=== PATIENT | male | born 1980 | race Caucasian/White ===

== ENCOUNTER 2019-03-01 06:05 | Day surgery (SDC) | payer BC, OTHER ==
[2019-03-01] MEDS ORDERED: Ondansetron 4 MG/2 ML SDV IVPUSH ONE (06:20)
[2019-03-01] MEDS ORDERED: Sodium Chloride 0.9% 1,000 ML IV ONE ×2 (06:20→07:02)
[2019-03-01] MEDS ORDERED: Sodium Chloride 0.9% 10 ML Syringe FLUSH PRN (06:20)
[2019-03-01] MEDS ORDERED: Morphine 2 MG/ML Syringe IVPUSH ONE (06:20)
[2019-03-01] MEDS ORDERED: Pantoprazole 40 MG Vial IVPUSH ONE (06:20)
[2019-03-01] MEDS ORDERED: Sodium Chloride 0.9% 2.5 ML Syringe FLUSH PRN (06:20)
--- NOTE | 2019-03-01 06:25 | EDM.PDOC ---
<Jayleen Holland - Last Filed: 03/01/19 06:30> ED HPI GENERAL MEDICAL PROBLEM - General Chief Complaint: Abdominal Pain Stated Complaint: ABDOMINAL PAIN, VOMITING Time Seen by Provider: 03/01/19 06:13 - History of Present Illness INITIAL COMMENTS - FREE TEXT/NARRATIVE: HISTORY AND PHYSICAL: History of present illness: The patient is a 38-year-old male with no GI or history and no abdominal surgical history who presents with 5-6 hours of epigastric and upper abdominal pain associated with vomiting. The patient said he had a normal day yesterday without any systemic issues and no new foods were consumed and he went to sleep and awoke from sleep with epigastric and upper abdominal bilateral pain which did not radiate to his lower abdomen or his flanks and then proceeded to have nausea and intractable vomiting. His vomit was not black or bloody nor was it ileus. The patient had a normal bowel movement yesterday which was not black bloody or diarrhea. He's had no flank pain no urinary symptoms no cough no chest pain and no shortness of breath. He said that with the vomiting and the pain he has felt feverish but he did not have a documented fever. He does not drink an excessive amount of caffeine and does not drink alcohol and denies other social history. The patient denies food intolerance in the past especially fatty foods or spicy foods. He has not had any exotic travel or new foods in his diet in the last 24 hours. He describes the pain as a deep crampy and achy pain and it does not radiate to his back. It does not localize to the right or left but is just in the upper abdomen and he does feel some slight discomfort in the lower abdomen but he feels that it's originating in the upper abdomen. He does not take any [id number] medications to try to help with this pain. The patient says that in the past he has not had issues with heartburn nor does he take any significant amount of nonsteroidals or heartburn medication. Review of systems: As per history of present illness and below otherwise all systems reviewed and negative. Past medical history: As per history of present illness and as reviewed below otherwise noncontributory. Surgical history: As per history of present illness and as reviewed below otherwise noncontributory. Social history: No reported history of drug or alcohol abuse. Family history: As per history of present illness and as reviewed below otherwise noncontributory. Physical exam: General: Well-developed well-nourished overweight man who is nontoxic and vital signs are noted by me. He ambulated into the ED without assistance HEENT: Atraumatic, normocephalic, negative for conjunctival pallor or scleral icterus, mucous membranes moist, throat clear, neck supple, nontender, trachea midline. Lungs: Clear to auscultation, breath sounds equal bilaterally, chest nontender. Heart: S1S2, regular rate and rhythm no overt murmurs Abdomen: Soft, nondistended, no tympany on percussion and bowel sounds are mildly hypoactive. On palpation there is some diffuse upper abdominal tenderness more in the epigastrium and not as much in the left upper and right upper quadrants. There is specific tenderness in the right lower quadrant with some involuntary guarding but no rebound which surprised the patient on my exam. Negative for masses or hepatosplenomegaly. Negative for costovertebral tenderness. Pelvis: Stable nontender. Genitourinary: Deferred. Rectal: Deferred. Extremities: Atraumatic, negative for cords or calf pain. Neurovascular unremarkable. Neuro: Awake, alert, oriented. Cranial nerves II through XII unremarkable. Cerebellum unremarkable. Motor and sensory unremarkable throughout. Exam nonfocal. Diagnostics: CBC CMP amylase lipase UA with reflex lactic acid CT scan of the abdomen and pelvis EKG Therapeutics: IV fluids Zofran and Protonix morphine 0650: Case is endorsed to Dr. Cunha to follow-up lab tests and CAT scan and disposition patient pending these results. Impression: Upper abdominal/epigastric pain with vomiting Definitive disposition and diagnosis as appropriate pending reevaluation and review of above. epigastric Pain Score (Numeric/FACES): 10 - Related Data Allergies Allergy/AdvReac Type Severity Reaction Status Date / Time No Known Allergies Allergy Verified 03/01/19 06:08 Home Meds: Home Meds . [No Known Home Meds] 09/07/13 [History] Past Medical History - Past Health History Medical/Surgical History: Denies Medical/Surgical History Social & Family History - Tobacco Use Smoking Status *Q: Never Smoker - Recreational Drug Use Recreational Drug Use: No ED ROS GENERAL - Review of Systems Review Of Systems: ROS reveals no pertinent complaints other than HPI. ED EXAM, GENERAL - Physical Exam Exam: See Below (See dictation) Course - Vital Signs Last Recorded V/S: Last Vital Signs Temp 97.3 F 03/01/19 08:23 Pulse 76 03/01/19 08:56 Resp 15 03/01/19 08:56 BP 131/61 03/01/19 08:56 Pulse Ox 98 03/01/19 08:56 - Orders/Labs/Meds Orders: Active Orders 24 hr Category Date Time Status EKG Documentation Completion [RC] STAT Care 03/01/19 06:19 Active Piperacillin/Tazobactam [Piperacil-Tazobact] 3.375 gm Med 03/01/19 08:40 Active Sodium Chloride 0.9% [Normal Saline] 50 ml IV ONETIME Sodium Chloride 0.9% [Saline Flush] Med 03/01/19 06:20 Active 10 ml FLUSH ASDIRECTED PRN Sodium Chloride 0.9% [Saline Flush] Med 03/01/19 06:20 Active 2.5 ml FLUSH ASDIRECTED PRN Saline Lock Insert [OM.PC] Stat Oth 03/01/19 06:19 Ordered Medication Orders Piperacillin Sod/Tazobactam (Sod 3.375 gm/ Sodium Chloride) 50 mls @ 100 mls/ hr IV ONETIME ONE Stop: 03/01/19 09:09 Last Admin: 03/01/19 08:53 Dose: 100 mls/hr Sodium Chloride (Saline Flush) 10 ml FLUSH ASDIRECTED PRN PRN Reason: Keep Vein Open Sodium Chloride (Saline Flush) 2.5 ml FLUSH ASDIRECTED PRN PRN Reason: Keep Vein Open Labs: Laboratory Tests 03/01/19 03/01/19 03/01/19 Range/Units 06:30 06:30 06:30 WBC 11.66 H (4.0-11.0) K/uL RBC 5.19 (4.50-5.90) M/uL Hgb 15.0 (13.0-17.0) g/dL Hct 44.4 (38.0-50.0) % MCV 85.5 (80.0-98.0) fL MCH 28.9 (27.0-32.0) pg MCHC 33.8 (31.0-37.0) g/dL RDW Std Deviation 40.3 (28.0-62.0) fl RDW Coeff of Leon 13 (11.0-15.0) % Plt Count 236 (150-400) K/uL MPV 9.70 (7.40-12.00) fL Neut % (Auto) 82.1 H (48.0-80.0) % Lymph % (Auto) 11.2 L (16.0-40.0) % [place] % (Auto) 5.6 (0.0-15.0) % Eos % (Auto) 0.8 (0.0-7.0) % Baso % (Auto) 0.3 (0.0-1.5) % Neut # (Auto) 9.6 H (1.4-5.7) K/uL Lymph # (Auto) 1.3 (0.6-2.4) K/uL [place] # (Auto) 0.7 (0.0-0.8) K/uL Eos # (Auto) 0.1 (0.0-0.7) K/uL Baso # (Auto) 0.0 (0.0-0.1) K/uL Nucleated RBC % 0.0 /100WBC Nucleated RBCs # 0 K/uL Lactate 1.1 (0.20-2.00) mmol/L Sodium 140 (136-148) mmol/L Potassium 4.6 (3.5-5.1) mmol/L Chloride 105 (98-107) mmol/L Carbon Dioxide 24.9 (21.0-32.0) mmol/L BUN 24 H (7.0-18.0) mg/dL Creatinine 1.4 H (0.8-1.3) mg/dL Est Cr Clr Drug Dosing 85.51 mL/min Estimated GFR (MDRD) 56.7 ml/min Glucose 112 H (74-106) mg/dL Calcium 8.7 (8.5-10.1) mg/dL Total Bilirubin 0.5 (0.2-1.0) mg/dL AST 28 (15-37) IU/L ALT 52 (14-63) IU/L Alkaline Phosphatase 66 (46-116) U/L Total Protein 7.3 (6.4-8.2) g/dL Albumin 4.1 (3.4-5.0) g/dL Globulin 3.2 (2.6-4.0) g/dL Albumin/Globulin Ratio 1.3 (0.9-1.6) Amylase 48 (25-115) U/L Lipase 75 (73-393) U/L Urine Color Urine Appearance Urine pH (5.0-8.0) Ur Specific [place] (1.001-1.035) Urine Protein (NEGATIVE) mg/dL Urine Glucose (UA) (NEGATIVE) mg/dL Urine Ketones (NEGATIVE) mg/dL Urine Occult Blood (NEGATIVE) Urine Nitrite (NEGATIVE) Urine Bilirubin (NEGATIVE) Urine Urobilinogen (<2.0) EU/dL Ur Leukocyte Esterase (NEGATIVE) 03/01/19 Range/Units 06:50 WBC (4.0-11.0) K/uL RBC (4.50-5.90) M/uL Hgb (13.0-17.0) g/dL Hct (38.0-50.0) % MCV (80.0-98.0) fL MCH (27.0-32.0) pg MCHC (31.0-37.0) g/dL RDW Std Deviation (28.0-62.0) fl RDW Coeff of Leon (11.0-15.0) % Plt Count (150-400) K/uL MPV (7.40-12.00) fL Neut % (Auto) (48.0-80.0) % Lymph % (Auto) (16.0-40.0) % [place] % (Auto) (0.0-15.0) % Eos % (Auto) (0.0-7.0) % Baso % (Auto) (0.0-1.5) % Neut # (Auto) (1.4-5.7) K/uL Lymph # (Auto) (0.6-2.4) K/uL [place] # (Auto) (0.0-0.8) K/uL Eos # (Auto) (0.0-0.7) K/uL Baso # (Auto) (0.0-0.1) K/uL Nucleated RBC % /100WBC Nucleated RBCs # K/uL Lactate (0.20-2.00) mmol/L Sodium (136-148) mmol/L Potassium (3.5-5.1) mmol/L Chloride (98-107) mmol/L Carbon Dioxide (21.0-32.0) mmol/L BUN (7.0-18.0) mg/dL Creatinine (0.8-1.3) mg/dL Est Cr Clr Drug Dosing mL/min Estimated GFR (MDRD) ml/min Glucose (74-106) mg/dL Calcium (8.5-10.1) mg/dL Total Bilirubin (0.2-1.0) mg/dL AST (15-37) IU/L ALT (14-63) IU/L Alkaline Phosphatase (46-116) U/L Total Protein (6.4-8.2) g/dL Albumin (3.4-5.0) g/dL Globulin (2.6-4.0) g/dL Albumin/Globulin Ratio (0.9-1.6) Amylase (25-115) U/L Lipase (73-393) U/L Urine Color YELLOW Urine Appearance CLEAR Urine pH 6.0 (5.0-8.0) Ur Specific [place] 1.020 (1.001-1.035) Urine Protein NEGATIVE (NEGATIVE) mg/dL Urine Glucose (UA) NEGATIVE (NEGATIVE) mg/dL Urine Ketones NEGATIVE (NEGATIVE) mg/dL Urine Occult Blood NEGATIVE (NEGATIVE) Urine Nitrite NEGATIVE (NEGATIVE) Urine Bilirubin NEGATIVE (NEGATIVE) Urine Urobilinogen 0.2 (<2.0) EU/dL Ur Leukocyte Esterase NEGATIVE (NEGATIVE) Meds: Medications Generic Name Dose Route Start Last Admin Trade Name Freq PRN Reason Stop Dose Admin Piperacillin Sod/Tazobactam 50 mls @ 100 mls/hr 03/01/19 08:40 03/01/19 08:53 Sod 3.375 gm/ Sodium Chloride IV 03/01/19 09:09 100 mls/hr ONETIME ONE Administration Sodium Chloride 10 ml 03/01/19 06:20 Saline Flush FLUSH ASDIRECTED PRN Keep Vein Open Sodium Chloride 2.5 ml 03/01/19 06:20 Saline Flush FLUSH ASDIRECTED PRN Keep Vein Open Discontinued Medications Generic Name Dose Route Start Last Admin Trade Name Freq PRN Reason Stop Dose Admin Hydromorphone HCl 0.5 mg 03/01/19 07:55 03/01/19 08:02 Dilaudid IVPUSH 03/01/19 07:56 0.5 mg ONETIME ONE Administration Sodium Chloride 1,000 mls @ 999 mls/hr 03/01/19 06:20 03/01/19 06:22 Normal Saline IV 03/01/19 07:20 999 mls/hr STAT ONE Administration Sodium Chloride Confirm 03/01/19 06:28 03/01/19 06:39 Normal Saline Administered 03/01/19 06:29 20 mls/hr Dose Administration 20 mls @ as directed .ROUTE .STK-MED ONE Sodium Chloride 1,000 mls @ 999 mls/hr 03/01/19 07:02 03/01/19 07:46 Normal Saline IV 03/01/19 08:02 999 mls/hr .Bolus ONE Administration Iopamidol 90 ml 03/01/19 07:20 03/01/19 07:21 Isovue-370 (76%) IVPUSH 03/01/19 07:21 90 ml ONETIME STA Administration Morphine Sulfate 4 mg 03/01/19 06:20 03/01/19 06:40 Morphine IVPUSH 03/01/19 06:21 4 mg ONETIME ONE Administration Ondansetron HCl 4 mg 03/01/19 06:20 03/01/19 06:36 Zofran IVPUSH 03/01/19 06:21 4 mg ONETIME ONE Administration Pantoprazole Sodium 80 mg 03/01/19 06:20 03/01/19 06:44 Protonix Iv IVPUSH 03/01/19 06:21 80 mg .BOLUS ONE Administration Departure - Departure Disposition: Still A Patient 30 Condition: Good Clinical Impression: Abdominal pain with vomiting Appendicitis Qualifiers: Appendicitis type: acute appendicitis Acute appendicitis type: other Qualified Code(s): K35.890 - Other acute appendicitis without perforation or gangrene; K35.89 - Other acute appendicitis - Discharge Information - My Orders Last 24 Hours: My Active Orders 03/01/19 08:40 Piperacillin/Tazobactam [Piperacil-Tazobact] 3.375 gm Sodium Chloride 0.9% [ Normal Saline] 50 ml IV ONETIME - Assessment/Plan Last 24 Hours: My Active Orders 03/01/19 08:40 Piperacillin/Tazobactam [Piperacil-Tazobact] 3.375 gm Sodium Chloride 0.9% [ Normal Saline] 50 ml IV ONETIME <Sasha Cunha - Last Filed: 03/01/19 09:03> ED HPI GENERAL MEDICAL PROBLEM - History of Present Illness INITIAL COMMENTS - FREE TEXT/NARRATIVE: patient was signed out to me byn Dr. Holland to follow up on work up in progress. Pt has acute uncomplicated appendicitis on CT with a WBC of 11. Zosyn given and Dr. Aguilar consulted. Pt will go directly to the OR. Departure - Departure Time of Disposition: 09:02
[2019-03-01] MEDS ORDERED: Sodium Chloride 0.9% 20 ML ONE (06:28)
[2019-03-01 06:57] LABS: CARBON DIOXIDE,CO2 24.9 mmol/L (21.0-32.0); POTASSIUM,K 4.6 mmol/L (3.5-5.1)
[2019-03-01] MEDS ORDERED: Iopamidol 755 Mg/ML 100 ML Bottle IVPUSH STA (07:20)
[2019-03-01] MEDS ORDERED: HYDROmorphone 2 MG/ML Syringe IVPUSH ONE (07:55)
--- NOTE | 2019-03-01 08:23 | CT ---
INDICATION: Epigastric and right lower quadrant abdominal pain for 5 hours with vomiting. COMPARISON: None. TECHNIQUE: CT of the abdomen pelvis with IV contrast. 90 cc of Isovue-370 was administered. FINDINGS: Mild basilar atelectasis. Liver, gallbladder, spleen, pancreas, adrenal glands and kidneys are unremarkable. The abdominal aorta is normal in caliber. No lymphadenopathy in the abdomen or pelvis. Urinary bladder is nondistended. Prostate is unremarkable. No free fluid or free air. Mild diverticulosis without evidence of acute diverticulitis. The appendix is dilated measuring up to 14 mm, with an appendicolith (series 203 image 54) and mild adjacent stranding consistent with acute appendicitis. No abscess no evidence of abscess or perforation. Bones are unremarkable for age. IMPRESSION: Acute uncomplicated appendicitis. Please note that all CT scans at this facility use dose modulation, iterative reconstruction, and/or weight-based dosing when appropriate to reduce radiation dose to as low as reasonably achievable. Dictated by Trevor Fontenot MD @ Mar 01 2019 8:15AM Signed by Dr. Trevor Fontenot @ Mar 01 2019 8:20AM
[2019-03-01] MEDS ORDERED: Piperacillin/Tazobactam 3.375 GM in Sodium Chloride 0.9% 50 ML IV ONE (08:40)
--- NOTE | 2019-03-01 09:18 | PCM.CONS ---
<Linda,Parkerlou - Last Filed: 03/01/19 09:13> H&P History of Present Illness - General Date of Service: 03/01/19 Admit Problem/Dx: Acute appendicitis Source of Information: Patient History Limitations: Reports: No Limitations - History of Present Illness Initial Comments - Free Text/Narative: Mr. Boogie is a 38 yr old male that presented to the ED this am with right lower quadrant abdominal pain and nausea. He states that the pain started out of the blue in the middle of the night. He had nausea and vomited one time. He states that the pain progressively got worse and he was unable to sleep or sit still. He came into the ED this am and said the car ride was miserable. He has never had anything like this before. He endorses associated fevers. Denies chills and diarrhea. Onset of Symptoms: Reports: Today, Sudden Symptom Onset Date: 03/01/19 Symptom Onset Time: 00:00 Duration of Symptoms: Reports: Hour(s):, Getting Worse Location: Reports: Abdomen Severity: Moderate Improves with: Reports: None Worsens with: Reports: Movement Associated Symptoms: Reports: Fever/Chills, Nausea/Vomiting epigastric Pain Score (Numeric/FACES): 10 - Related Data Allergies/Adverse Reactions: Allergies Allergy/AdvReac Type Severity Reaction Status Date / Time No Known Allergies Allergy Verified 03/01/19 06:08 Home Medications: Home Meds . [No Known Home Meds] 09/07/13 [History] Past Medical History - Past Health History Medical/Surgical History: Denies Medical/Surgical History Respiratory History: Reports: None - Past Surgical History Head Surgeries/Procedures: Reports: None HEENT Surgical History: Reports: None Cardiovascular Surgical History: Reports: None Respiratory Surgical History: Reports: None GI Surgical History: Reports: None Female Surgical History: Reports: None Male Surgical History: Reports: None Endocrine Surgical History: Reports: None Neurological Surgical History: Reports: None Musculoskeletal Surgical History: Reports: None Oncologic Surgical History: Reports: None Dermatological Surgical History: Reports: None Social & Family History - Family History Family Medical History: Noncontributory - Tobacco Use Smoking Status *Q: Never Smoker - Alcohol Use Alcohol Use History: Yes Alcohol Use Frequency: Socially - Recreational Drug Use Recreational Drug Use: No H&P Review of Systems - Review of Systems: Review Of Systems: See Below General: Reports: Fever, Decreased Appetite HEENT: Reports: No Symptoms Pulmonary: Reports: No Symptoms Cardiovascular: Reports: No Symptoms Gastrointestinal: Reports: Abdominal Pain, Nausea, Vomiting Genitourinary: Reports: No Symptoms Musculoskeletal: Reports: No Symptoms Skin: Reports: No Symptoms Neurological: Reports: No Symptoms Hematologic/Lymphatic: Reports: No Symptoms Immunologic: Reports: No Symptoms Exam - Exam Exam: See Below - Vital Signs Vital Signs: Last Vital Signs Temp 97.3 F 03/01/19 08:23 Pulse 76 03/01/19 08:56 Resp 15 03/01/19 08:56 BP 131/61 03/01/19 08:56 Pulse Ox 98 03/01/19 08:56 Weight: 285 lb 4.45 oz - Exam General: Alert, Oriented, Mild Distress (moving around in bed trying to get comfortable) HEENT: Conjunctiva Clear, EOMI, Hearing Intact Lungs: Clear to Auscultation, Normal Respiratory Effort Cardiovascular: Regular Rate, Regular Rhythm GI/Abdominal Exam: Soft, No Distention, Rebound, Tender (to Right lower quadrant , positive Rosvigs sign) Extremities: No Pedal Edema Skin: Warm, Dry, Intact - Patient Data Lab Results Last 24 hrs: Laboratory Results - last 24 hr 03/01/19 03/01/19 03/01/19 Range/Units 06:30 06:30 06:30 WBC 11.66 H (4.0-11.0) K/uL RBC 5.19 (4.50-5.90) M/uL Hgb 15.0 (13.0-17.0) g/dL Hct 44.4 (38.0-50.0) % MCV 85.5 (80.0-98.0) fL MCH 28.9 (27.0-32.0) pg MCHC 33.8 (31.0-37.0) g/dL RDW Std Deviation 40.3 (28.0-62.0) fl RDW Coeff of Leon 13 (11.0-15.0) % Plt Count 236 (150-400) K/uL MPV 9.70 (7.40-12.00) fL Neut % (Auto) 82.1 H (48.0-80.0) % Lymph % (Auto) 11.2 L (16.0-40.0) % [place] % (Auto) 5.6 (0.0-15.0) % Eos % (Auto) 0.8 (0.0-7.0) % Baso % (Auto) 0.3 (0.0-1.5) % Neut # (Auto) 9.6 H (1.4-5.7) K/uL Lymph # (Auto) 1.3 (0.6-2.4) K/uL [place] # (Auto) 0.7 (0.0-0.8) K/uL Eos # (Auto) 0.1 (0.0-0.7) K/uL Baso # (Auto) 0.0 (0.0-0.1) K/uL Nucleated RBC % 0.0 /100WBC Nucleated RBCs # 0 K/uL Lactate 1.1 (0.20-2.00) mmol/L Sodium 140 (136-148) mmol/L Potassium 4.6 (3.5-5.1) mmol/L Chloride 105 (98-107) mmol/L Carbon Dioxide 24.9 (21.0-32.0) mmol/L BUN 24 H (7.0-18.0) mg/dL Creatinine 1.4 H (0.8-1.3) mg/dL Est Cr Clr Drug Dosing 85.51 mL/min Estimated GFR (MDRD) 56.7 ml/min Glucose 112 H (74-106) mg/dL Calcium 8.7 (8.5-10.1) mg/dL Total Bilirubin 0.5 (0.2-1.0) mg/dL AST 28 (15-37) IU/L ALT 52 (14-63) IU/L Alkaline Phosphatase 66 (46-116) U/L Total Protein 7.3 (6.4-8.2) g/dL Albumin 4.1 (3.4-5.0) g/dL Globulin 3.2 (2.6-4.0) g/dL Albumin/Globulin Ratio 1.3 (0.9-1.6) Amylase 48 (25-115) U/L Lipase 75 (73-393) U/L Urine Color Urine Appearance Urine pH (5.0-8.0) Ur Specific [place] (1.001-1.035) Urine Protein (NEGATIVE) mg/dL Urine Glucose (UA) (NEGATIVE) mg/dL Urine Ketones (NEGATIVE) mg/dL Urine Occult Blood (NEGATIVE) Urine Nitrite (NEGATIVE) Urine Bilirubin (NEGATIVE) Urine Urobilinogen (<2.0) EU/dL Ur Leukocyte Esterase (NEGATIVE) 03/01/19 Range/Units 06:50 WBC (4.0-11.0) K/uL RBC (4.50-5.90) M/uL Hgb (13.0-17.0) g/dL Hct (38.0-50.0) % MCV (80.0-98.0) fL MCH (27.0-32.0) pg MCHC (31.0-37.0) g/dL RDW Std Deviation (28.0-62.0) fl RDW Coeff of Leon (11.0-15.0) % Plt Count (150-400) K/uL MPV (7.40-12.00) fL Neut % (Auto) (48.0-80.0) % Lymph % (Auto) (16.0-40.0) % [place] % (Auto) (0.0-15.0) % Eos % (Auto) (0.0-7.0) % Baso % (Auto) (0.0-1.5) % Neut # (Auto) (1.4-5.7) K/uL Lymph # (Auto) (0.6-2.4) K/uL [place] # (Auto) (0.0-0.8) K/uL Eos # (Auto) (0.0-0.7) K/uL Baso # (Auto) (0.0-0.1) K/uL Nucleated RBC % /100WBC Nucleated RBCs # K/uL Lactate (0.20-2.00) mmol/L Sodium (136-148) mmol/L Potassium (3.5-5.1) mmol/L Chloride (98-107) mmol/L Carbon Dioxide (21.0-32.0) mmol/L BUN (7.0-18.0) mg/dL Creatinine (0.8-1.3) mg/dL Est Cr Clr Drug Dosing mL/min Estimated GFR (MDRD) ml/min Glucose (74-106) mg/dL Calcium (8.5-10.1) mg/dL Total Bilirubin (0.2-1.0) mg/dL AST (15-37) IU/L ALT (14-63) IU/L Alkaline Phosphatase (46-116) U/L Total Protein (6.4-8.2) g/dL Albumin (3.4-5.0) g/dL Globulin (2.6-4.0) g/dL Albumin/Globulin Ratio (0.9-1.6) Amylase (25-115) U/L Lipase (73-393) U/L Urine Color YELLOW Urine Appearance CLEAR Urine pH 6.0 (5.0-8.0) Ur Specific [place] 1.020 (1.001-1.035) Urine Protein NEGATIVE (NEGATIVE) mg/dL Urine Glucose (UA) NEGATIVE (NEGATIVE) mg/dL Urine Ketones NEGATIVE (NEGATIVE) mg/dL Urine Occult Blood NEGATIVE (NEGATIVE) Urine Nitrite NEGATIVE (NEGATIVE) Urine Bilirubin NEGATIVE (NEGATIVE) Urine Urobilinogen 0.2 (<2.0) EU/dL Ur Leukocyte Esterase NEGATIVE (NEGATIVE) Result Diagrams: 03/01/19 06:30 03/01/19 06:30 Imaging Impressions Last 24 hrs: CT abdomen and pelvis: Acute appendicitis with fecalith present Consult PN Assessment/Plan Procedures: Procedures EMERGENCY DEPT VISIT (09/07/13) RPR S/N/AX/GEN/TRNK2.6-7.5CM (09/07/13) (1) Appendicitis SNOMED Code(s): 66491124 Code(s): K37 - UNSPECIFIED APPENDICITIS Current Visit: Yes Qualifiers: Appendicitis type: acute appendicitis Acute appendicitis type: unspecified acute appendicitis type Qualified Code(s): K35.80 - Unspecified acute appendicitis Problem List Initiated/Reviewed/Updated: Yes Plan: -IV abx started in the ED -NPO -Plan for surgery today, laparoscopic possible open appendectomy -IV fluids, LR 125 mL/hr <Mateo Aguilar - Last Filed: 03/01/19 10:32> Exam - Vital Signs Vital Signs: Last Vital Signs Temp 97.3 F 03/01/19 08:23 Pulse 76 03/01/19 08:56 Resp 15 03/01/19 08:56 BP 131/61 03/01/19 08:56 Pulse Ox 98 03/01/19 08:56 - Patient Data Lab Results Last 24 hrs: Laboratory Results - last 24 hr 03/01/19 03/01/19 03/01/19 Range/Units 06:30 06:30 06:30 WBC 11.66 H (4.0-11.0) K/uL RBC 5.19 (4.50-5.90) M/uL Hgb 15.0 (13.0-17.0) g/dL Hct 44.4 (38.0-50.0) % MCV 85.5 (80.0-98.0) fL MCH 28.9 (27.0-32.0) pg MCHC 33.8 (31.0-37.0) g/dL RDW Std Deviation 40.3 (28.0-62.0) fl RDW Coeff of Leon 13 (11.0-15.0) % Plt Count 236 (150-400) K/uL MPV 9.70 (7.40-12.00) fL Neut % (Auto) 82.1 H (48.0-80.0) % Lymph % (Auto) 11.2 L (16.0-40.0) % [place] % (Auto) 5.6 (0.0-15.0) % Eos % (Auto) 0.8 (0.0-7.0) % Baso % (Auto) 0.3 (0.0-1.5) % Neut # (Auto) 9.6 H (1.4-5.7) K/uL Lymph # (Auto) 1.3 (0.6-2.4) K/uL [place] # (Auto) 0.7 (0.0-0.8) K/uL Eos # (Auto) 0.1 (0.0-0.7) K/uL Baso # (Auto) 0.0 (0.0-0.1) K/uL Nucleated RBC % 0.0 /100WBC Nucleated RBCs # 0 K/uL Lactate 1.1 (0.20-2.00) mmol/L Sodium 140 (136-148) mmol/L Potassium 4.6 (3.5-5.1) mmol/L Chloride 105 (98-107) mmol/L Carbon Dioxide 24.9 (21.0-32.0) mmol/L BUN 24 H (7.0-18.0) mg/dL Creatinine 1.4 H (0.8-1.3) mg/dL Est Cr Clr Drug Dosing 85.51 mL/min Estimated GFR (MDRD) 56.7 ml/min Glucose 112 H (74-106) mg/dL Calcium 8.7 (8.5-10.1) mg/dL Total Bilirubin 0.5 (0.2-1.0) mg/dL AST 28 (15-37) IU/L ALT 52 (14-63) IU/L Alkaline Phosphatase 66 (46-116) U/L Total Protein 7.3 (6.4-8.2) g/dL Albumin 4.1 (3.4-5.0) g/dL Globulin 3.2 (2.6-4.0) g/dL Albumin/Globulin Ratio 1.3 (0.9-1.6) Amylase 48 (25-115) U/L Lipase 75 (73-393) U/L Urine Color Urine Appearance Urine pH (5.0-8.0) Ur Specific [place] (1.001-1.035) Urine Protein (NEGATIVE) mg/dL Urine Glucose (UA) (NEGATIVE) mg/dL Urine Ketones (NEGATIVE) mg/dL Urine Occult Blood (NEGATIVE) Urine Nitrite (NEGATIVE) Urine Bilirubin (NEGATIVE) Urine Urobilinogen (<2.0) EU/dL Ur Leukocyte Esterase (NEGATIVE) 03/01/19 Range/Units 06:50 WBC (4.0-11.0) K/uL RBC (4.50-5.90) M/uL Hgb (13.0-17.0) g/dL Hct (38.0-50.0) % MCV (80.0-98.0) fL MCH (27.0-32.0) pg MCHC (31.0-37.0) g/dL RDW Std Deviation (28.0-62.0) fl RDW Coeff of Leon (11.0-15.0) % Plt Count (150-400) K/uL MPV (7.40-12.00) fL Neut % (Auto) (48.0-80.0) % Lymph % (Auto) (16.0-40.0) % [place] % (Auto) (0.0-15.0) % Eos % (Auto) (0.0-7.0) % Baso % (Auto) (0.0-1.5) % Neut # (Auto) (1.4-5.7) K/uL Lymph # (Auto) (0.6-2.4) K/uL [place] # (Auto) (0.0-0.8) K/uL Eos # (Auto) (0.0-0.7) K/uL Baso # (Auto) (0.0-0.1) K/uL Nucleated RBC % /100WBC Nucleated RBCs # K/uL Lactate (0.20-2.00) mmol/L Sodium (136-148) mmol/L Potassium (3.5-5.1) mmol/L Chloride (98-107) mmol/L Carbon Dioxide (21.0-32.0) mmol/L BUN (7.0-18.0) mg/dL Creatinine (0.8-1.3) mg/dL Est Cr Clr Drug Dosing mL/min Estimated GFR (MDRD) ml/min Glucose (74-106) mg/dL Calcium (8.5-10.1) mg/dL Total Bilirubin (0.2-1.0) mg/dL AST (15-37) IU/L ALT (14-63) IU/L Alkaline Phosphatase (46-116) U/L Total Protein (6.4-8.2) g/dL Albumin (3.4-5.0) g/dL Globulin (2.6-4.0) g/dL Albumin/Globulin Ratio (0.9-1.6) Amylase (25-115) U/L Lipase (73-393) U/L Urine Color YELLOW Urine Appearance CLEAR Urine pH 6.0 (5.0-8.0) Ur Specific [place] 1.020 (1.001-1.035) Urine Protein NEGATIVE (NEGATIVE) mg/dL Urine Glucose (UA) NEGATIVE (NEGATIVE) mg/dL Urine Ketones NEGATIVE (NEGATIVE) mg/dL Urine Occult Blood NEGATIVE (NEGATIVE) Urine Nitrite NEGATIVE (NEGATIVE) Urine Bilirubin NEGATIVE (NEGATIVE) Urine Urobilinogen 0.2 (<2.0) EU/dL Ur Leukocyte Esterase NEGATIVE (NEGATIVE) Result Diagrams: 03/01/19 06:30 03/01/19 06:30 Consult PN Assessment/Plan Procedures: Procedures EMERGENCY DEPT VISIT (09/07/13) RPR S/N/AX/GEN/TRNK2.6-7.5CM (09/07/13) (1) Abdominal pain with vomiting SNOMED Code(s): 33198869 Code(s): R10.9 - UNSPECIFIED ABDOMINAL PAIN; R11.10 - VOMITING, UNSPECIFIED Priority: Medium Current Visit: Yes (2) Appendicitis SNOMED Code(s): 86564422 Code(s): K37 - UNSPECIFIED APPENDICITIS Priority: High Current Visit: Yes Qualifiers: Appendicitis type: acute appendicitis Acute appendicitis type: unspecified acute appendicitis type Qualified Code(s): K35.80 - Unspecified acute appendicitis Problem List Initiated/Reviewed/Updated: Yes My Orders Last 24 Hours: My Active Orders 03/01/19 10:10 Influenza Vaccine Charge [RC] .DISCHARGE 03/01/19 10:27 Antiembolic Devices [RC] PER UNIT ROUTINE Insert Urinary Catheter [OM.PC] Timed Oxygen Therapy [RC] ASDIRECTED RT Incentive Spirometry [RC] Q1HWA Skin Preparation [RC] .PREOP Urinary Catheter Assessment [RC] ASDIRECTED Urinary Catheter Assessment [RC] ASDIRECTED Urinary Catheter Assessment [RC] ASDIRECTED Vital Signs [RC] PER UNIT ROUTINE Antiembolic Hose [OM.PC] Routine Resuscitation Status Routine 03/01/19 10:28 Morphine See Dose Instructions IVPUSH Q1H PRN 03/01/19 10:29 Skin Preparation [RC] ASDIRECTED 03/01/19 10:30 Lactated Ringers @ 125 MLS/HR(1000ml) Lactated Ringers [Ringers, Lactated] 1, 000 ml IV ASDIRECTED 03/01/19 Breakfast Nothing Per Oral Diet [DIET] 03/03/19 10:30 FLU Vacc [id number](6MOS+)/PF [Fluzone Quad Syringe] 60 mcg IM .ONCE ONE Plan: Patient seen and independently examined. Laparoscopic appendectomy, possible open appendectomy. Both operative procedures, along with the risks, including, but not limited to, bleeding, infection, pneumonia, deep venous thrombosis, pulmonary emboli, myocardial infarction, and adjacent organ injury have been reviewed with the patient who voices understanding, offers no questions and agrees to proceed.
[2019-03-01] MEDS ORDERED: Morphine 10 MG/ML Syringe IVPUSH PRN (10:28)
[2019-03-01] MEDS ORDERED: HYDROmorphone 1 MG/ML Syringe IVPUSH ONE (10:33)
--- NOTE | 2019-03-01 10:37 | PCM.PREANE ---
Preanesthetic Assessment - Anesthesia/Transfusion/Family Hx Anesthesia History: No Prior Anesthesia Family History of Anesthesia Reaction: No Transfusion History: No Prior Transfusion(s) Type of Transfusion Reactions: Reports: Unknown - Review of Systems General: No Symptoms Cardiovascular: No Symptoms Gastrointestinal: Abdominal Pain, Nausea, Vomiting Neurological: No Symptoms Other: Reports: None - Physical Assessment NPO Status Date: 03/01/19 NPO Status Time: 00:05 Vital Signs: Last Vital Signs Temp 36.3 C 03/01/19 08:23 Pulse 76 03/01/19 08:56 Resp 15 03/01/19 08:56 BP 131/61 03/01/19 08:56 Pulse Ox 98 03/01/19 08:56 Height: 1.91 m Weight: 129.274 kg ASA Class: 1E Mental Status: Alert & Oriented x3 Dentition: Reports: Normal Dentition ROM/Head Extension: Full Lungs: Clear to Auscultation Cardiovascular: Regular Rate - Lab Values: Laboratory Last Values WBC 11.66 K/uL (4.0-11.0) H 03/01/19 06:30 RBC 5.19 M/uL (4.50-5.90) 03/01/19 06:30 Hgb 15.0 g/dL (13.0-17.0) 03/01/19 06:30 Hct 44.4 % (38.0-50.0) 03/01/19 06:30 MCV 85.5 fL (80.0-98.0) 03/01/19 06:30 MCH 28.9 pg (27.0-32.0) 03/01/19 06:30 MCHC 33.8 g/dL (31.0-37.0) 03/01/19 06:30 RDW Std Deviation 40.3 fl (28.0-62.0) 03/01/19 06:30 RDW Coeff of Leon 13 % (11.0-15.0) 03/01/19 06:30 Plt Count 236 K/uL (150-400) 03/01/19 06:30 MPV 9.70 fL (7.40-12.00) 03/01/19 06:30 Neut % (Auto) 82.1 % (48.0-80.0) H 03/01/19 06:30 Lymph % (Auto) 11.2 % (16.0-40.0) L 03/01/19 06:30 [place] % (Auto) 5.6 % (0.0-15.0) 03/01/19 06:30 Eos % (Auto) 0.8 % (0.0-7.0) 03/01/19 06:30 Baso % (Auto) 0.3 % (0.0-1.5) 03/01/19 06:30 Neut # (Auto) 9.6 K/uL (1.4-5.7) H 03/01/19 06:30 Lymph # (Auto) 1.3 K/uL (0.6-2.4) 03/01/19 06:30 [place] # (Auto) 0.7 K/uL (0.0-0.8) 03/01/19 06:30 Eos # (Auto) 0.1 K/uL (0.0-0.7) 03/01/19 06:30 Baso # (Auto) 0.0 K/uL (0.0-0.1) 03/01/19 06:30 Nucleated RBC % 0.0 /100WBC 03/01/19 06:30 Nucleated RBCs # 0 K/uL 03/01/19 06:30 Lactate 1.1 mmol/L (0.20-2.00) 03/01/19 06:30 Sodium 140 mmol/L (136-148) 03/01/19 06:30 Potassium 4.6 mmol/L (3.5-5.1) 03/01/19 06:30 Chloride 105 mmol/L (98-107) 03/01/19 06:30 Carbon Dioxide 24.9 mmol/L (21.0-32.0) 03/01/19 06:30 BUN 24 mg/dL (7.0-18.0) H 03/01/19 06:30 Creatinine 1.4 mg/dL (0.8-1.3) H 03/01/19 06:30 Est Cr Clr Drug Dosing 85.51 mL/min 03/01/19 06:30 Estimated GFR (MDRD) 56.7 ml/min 03/01/19 06:30 Glucose 112 mg/dL (74-106) H 03/01/19 06:30 Calcium 8.7 mg/dL (8.5-10.1) 03/01/19 06:30 Total Bilirubin 0.5 mg/dL (0.2-1.0) 03/01/19 06:30 AST 28 IU/L (15-37) 03/01/19 06:30 ALT 52 IU/L (14-63) 03/01/19 06:30 Alkaline Phosphatase 66 U/L (46-116) 03/01/19 06:30 Total Protein 7.3 g/dL (6.4-8.2) 03/01/19 06:30 Albumin 4.1 g/dL (3.4-5.0) 03/01/19 06:30 Globulin 3.2 g/dL (2.6-4.0) 03/01/19 06:30 Albumin/Globulin Ratio 1.3 (0.9-1.6) 03/01/19 06:30 Amylase 48 U/L (25-115) 03/01/19 06:30 Lipase 75 U/L (73-393) 03/01/19 06:30 Urine Color YELLOW 03/01/19 06:50 Urine Appearance CLEAR 03/01/19 06:50 Urine pH 6.0 (5.0-8.0) 03/01/19 06:50 Ur Specific [place] 1.020 (1.001-1.035) 03/01/19 06:50 Urine Protein NEGATIVE mg/dL (NEGATIVE) 03/01/19 06:50 Urine Glucose (UA) NEGATIVE mg/dL (NEGATIVE) 03/01/19 06:50 Urine Ketones NEGATIVE mg/dL (NEGATIVE) 03/01/19 06:50 Urine Occult Blood NEGATIVE (NEGATIVE) 03/01/19 06:50 Urine Nitrite NEGATIVE (NEGATIVE) 03/01/19 06:50 Urine Bilirubin NEGATIVE (NEGATIVE) 03/01/19 06:50 Urine Urobilinogen 0.2 EU/dL (<2.0) 03/01/19 06:50 Ur Leukocyte Esterase NEGATIVE (NEGATIVE) 03/01/19 06:50 - Allergies Allergies/Adverse Reactions: Allergies Allergy/AdvReac Type Severity Reaction Status Date / Time No Known Allergies Allergy Verified 03/01/19 06:08 - Blood Blood Available: No - Acknowledgements Anesthesia Type Planned: General Anesthesia Pt an Appropriate Candidate for the Planned Anesthesia: Yes Alternatives and Risks of Anesthesia Discussed w Pt/Guardian: Yes Pt/Guardian Understands and Agrees with Anesthesia Plan: Yes PreAnesthesia Questionnaire - Past Health History Medical/Surgical History: Denies Medical/Surgical History Respiratory History: Reports: None - Past Surgical History Head Surgeries/Procedures: Reports: None HEENT Surgical History: Reports: None Cardiovascular Surgical History: Reports: None Respiratory Surgical History: Reports: None GI Surgical History: Reports: None Male Surgical History: Reports: None Endocrine Surgical History: Reports: None Neurological Surgical History: Reports: None Musculoskeletal Surgical History: Reports: None Oncologic Surgical History: Reports: None Dermatological Surgical History: Reports: None - SUBSTANCE USE Smoking Status *Q: Never Smoker Tobacco Use Within Last Twelve Months: No Second Hand Smoke Exposure: No Days Per Week of Alcohol Use: 1 Number of Drinks Per Day: 0 Total Drinks Per Week: 0 Recreational Drug Use History: No - HOME MEDS Home Medications: Home Meds . [No Known Home Meds] 09/07/13 [History] - CURRENT (IN HOUSE) MEDS Current Meds: Current Medications Hydromorphone HCl (Dilaudid) 1 mg IVPUSH ONETIME ONE Stop: 03/01/19 10:34 Lactated Ringer's (Ringers, Lactated) 1,000 mls @ 125 mls/hr IV ASDIRECTED EMY Influenza Virus Vaccine (Fluzone Quad Syringe) 60 mcg IM .ONCE ONE Stop: 03/03/19 10:31 Morphine Sulfate (Morphine) 0 mg IVPUSH Q1H PRN PRN Reason: Pain (moderate 4-6) Sodium Chloride (Saline Flush) 10 ml FLUSH ASDIRECTED PRN PRN Reason: Keep Vein Open Sodium Chloride (Saline Flush) 2.5 ml FLUSH ASDIRECTED PRN PRN Reason: Keep Vein Open Discontinued Medications Hydromorphone HCl (Dilaudid) 0.5 mg IVPUSH ONETIME ONE Stop: 03/01/19 07:56 Last Admin: 03/01/19 08:02 Dose: 0.5 mg Sodium Chloride (Normal Saline) 1,000 mls @ 999 mls/hr IV STAT ONE Stop: 03/01/19 07:20 Last Admin: 03/01/19 06:22 Dose: 999 mls/hr Sodium Chloride (Normal Saline) Confirm Administered Dose 20 mls @ as directed .ROUTE .STK-MED ONE Stop: 03/01/19 06:29 Last Admin: 03/01/19 06:39 Dose: 20 mls/hr Sodium Chloride (Normal Saline) 1,000 mls @ 999 mls/hr IV .Bolus ONE Stop: 03/01/19 08:02 Last Admin: 03/01/19 07:46 Dose: 999 mls/hr Piperacillin Sod/Tazobactam (Sod 3.375 gm/ Sodium Chloride) 50 mls @ 100 mls/ hr IV ONETIME ONE Stop: 03/01/19 09:09 Last Admin: 03/01/19 08:53 Dose: 100 mls/hr Influenza Virus Vaccine (Pharmacy To Dose - Influenza Vaccine) 1 each IM ONETIME ONE Stop: 03/01/19 10:10 Iopamidol (Isovue-370 (76%)) 90 ml IVPUSH ONETIME STA Stop: 03/01/19 07:21 Last Admin: 03/01/19 07:21 Dose: 90 ml Morphine Sulfate (Morphine) 4 mg IVPUSH ONETIME ONE Stop: 03/01/19 06:21 Last Admin: 03/01/19 06:40 Dose: 4 mg Ondansetron HCl (Zofran) 4 mg IVPUSH ONETIME ONE Stop: 03/01/19 06:21 Last Admin: 03/01/19 06:36 Dose: 4 mg Pantoprazole Sodium (Protonix Iv) 80 mg IVPUSH .BOLUS ONE Stop: 03/01/19 06:21 Last Admin: 03/01/19 06:44 Dose: 80 mg
[2019-03-01] MEDS: Lactated Ringers 1,000 ML IV SCH ×2 (10:40→21:14)
[2019-03-01] MEDS ORDERED: Midazolam 1 MG/ML 2 ML SDV ONE (12:02)
[2019-03-01] MEDS ORDERED: Propofol 200 MG/20 ML SDV ONE (12:02)
[2019-03-01] MEDS ORDERED: fentaNYL 250 MCG/5 ML SDV ONE (12:02)
[2019-03-01] MEDS ORDERED: Glycopyrrolate 0.2 MG/ML SDV ONE (12:04)
[2019-03-01] MEDS ORDERED: Ketorolac 30 MG/ML SDV ONE (12:04)
[2019-03-01] MEDS ORDERED: Lidocaine 2% 5 ML SDV ONE (12:04)
[2019-03-01] MEDS ORDERED: Neostigmine Methylsulfate 1 MG/ML 5 ML Syringe ONE (12:04)
[2019-03-01] MEDS ORDERED: Ondansetron 4 MG/2 ML SDV ONE (12:04)
[2019-03-01] MEDS ORDERED: Rocuronium 100 MG/10 ML Syringe ONE (12:04)
[2019-03-01] MEDS ORDERED: Bupivacaine 0.5% 30 ML SDV ONE (12:09)
[2019-03-01] MEDS ORDERED: ceFAZolin 1 GM Vial ONE (12:10)
[2019-03-01] MEDS ORDERED: Phenylephrine/Normal Saline 100 MCG/ML 10 ML Syringe ONE (13:41)
[2019-03-01] MEDS ORDERED: fentaNYL 100 MCG/2 ML SDV ONE (13:46)
[2019-03-01] MEDS ORDERED: HYDROmorphone 2 MG/ML Syringe IVPUSH PRN (13:59)
[2019-03-01] MEDS ORDERED: Ondansetron 4 MG/2 ML SDV IVPUSH PRN (13:59)
[2019-03-01] MEDS ORDERED: Acetaminophen 325 MG Tab PO SCH (14:00)
[2019-03-01] MEDS ORDERED: cefOXitin 1 GM in Premix Bag 1 BAG IV SCH (14:00)
[2019-03-01] MEDS ORDERED: Lactated Ringers 1,000 ML IV SCH (14:00)
--- NOTE | 2019-03-01 14:04 | PCM.OPNOTE ---
- General Post-Op/Procedure Note Date of Surgery/Procedure: 03/01/19 Operative Procedure(s): Laparoscopic appendectomy Pre Op Diagnosis: Acute abdomen Post-Op Diagnosis: Acute appendicitis without perforation Anesthesia Technique: General ET Tube (ASA IIE) Primary Surgeon: Mateo Aguilar Shipping Receiving Manager: Hugo Mckeon Fluid Replacement, Intraop: 1,200 Output, Urine Amount: 500 EBL in mLs: 10 Condition: Good Free Text/Narrative:: Intake & Output 03/01/19 03/01/19 03/01/19 03:59 11:59 19:59 Output Total 500 Balance -500 DICTATION 141018 CPT CODE 54135
[2019-03-01] MEDS ORDERED: oxyCODONE 5 MG Tab PO PRN (14:10)
--- NOTE | 2019-03-01 14:42 | PCM.POSTAN ---
POST ANESTHESIA ASSESSMENT - MENTAL STATUS Mental Status: Alert, Oriented - VITAL SIGNS Vital Signs: Last Vital Signs Temp 101.8 F H 03/01/19 14:01 Pulse 96 03/01/19 14:36 Resp 16 03/01/19 14:36 BP 109/68 03/01/19 14:36 Pulse Ox 95 03/01/19 14:36 - RESPIRATORY Respiratory Status: Respiratory Rate WNL, Airway Patent, O2 Saturation Stable - CARDIOVASCULAR CV Status: Pulse Rate WNL, Blood Pressure Stable - GASTROINTESTINAL GI Status: No Symptoms - POST OP HYDRATION Hydration Status: Adequate & Stable
--- NOTE | 2019-03-01 15:07 | OR ---
SURGEON: Mateo Aguilar M.D. DATE OF PROCEDURE: 03/01/2019 PROCEDURE PERFORMED: Laparoscopic appendectomy. PRIMARY SURGEON: Mateo Aguilar M.D. MATHEMATICS EDUCATION PROFESSOR: retail event and sales assistant: Dr. Mckeon, PGY-2. ANESTHESIA: General endotracheal. ASA CLASSIFICATION: IIE. PREOPERATIVE DIAGNOSIS: Acute abdomen. POSTOPERATIVE DIAGNOSIS: Acute appendicitis without perforation. ESTIMATED BLOOD LOSS: 10 mL. INTRAOPERATIVE FLUID REPLACEMENT: 1200 mL of crystalloid. INTRAOPERATIVE URINE OUTPUT: 500 mL. DESCRIPTION OF PROCEDURE: The patient was taken to the operating room and placed on the operating table in the supine position. Time-out was called for appropriate identification of the patient and procedure. Thigh-high TEDs and sequential compression boots were placed. Following satisfactory attainment of general endotracheal anesthesia, a Woo catheter was placed in the patient's urinary bladder. The abdomen was prepped with DuraPrep solution, sterile drapes were applied. The skin just above the umbilicus was infiltrated with 0.5% Marcaine solution. The skin incision was made and deepened through the subcutaneous tissue obtaining hemostasis with the use of electrocautery. The Veress needle was introduced into the peritoneal cavity. Saline drop test was positive. Carbon dioxide pneumoperitoneum was established with the release set at 13 cm of water. Once a satisfactory pneumoperitoneum was established, 5 mm camera and port were placed through the supraumbilical incision. The patient was now positioned with his head down and rolled to the left. Under camera vision, 12 mm suprapubic and 5 mm left lower quadrant ports were placed. Each incision was preemptively infiltrated with 0.5% Marcaine solution. The appendix was grasped and was acutely inflamed but not perforated and not gangrenous. The mesoappendix was taken down with the Harmonic scalpel. The base of the appendix was transected using the Endo-ZELALEM with a blue load staple. The staple line was inspected and secured. The right lower quadrant was irrigated with sterile saline solution. All fluid was aspirated. The appendix had been placed in an Endo Catch and maintained in situ while the right lower quadrant was irrigated. All fluid was aspirated. The patient was returned to a neutral position. Under camera vision, the 12 mm suprapubic and Endo Catch containing appendix were removed. Again, under camera vision, the 5 mm left lower quadrant port was removed, and finally, the supraumbilical camera port were removed. Wounds were inspected for hemostasis and small bleeding sites were electrocoagulated. The suprapubic and supraumbilical incisions were closed in 2 layers approximating the subcutaneous tissue with 3-0 Vicryl and the skin with subcuticular 4-0 Monocryl. The left lower quadrant incision was closed with subcuticular 4-0 Monocryl. All incisions were Steri-Stripped and dressed with sterile Tegaderm pads. Sponge, needle, and instrument counts were all correct. Woo catheter was removed prior to emergence from anesthesia. Following emergence from anesthesia and extubation, the patient was taken to recovery room in stable condition. SANDEEP PURDY /[id number]
[2019-03-01] MEDS: cefOXitin 1 GM in Premix Bag 1 BAG IV SCH (16:46)
[2019-03-01] MEDS: Acetaminophen 325 MG Tab PO SCH ×2 (16:53→23:00)
[2019-03-01] MEDS: oxyCODONE 5 MG Tab PO PRN ×2 (16:55→21:17)
[2019-03-02] MEDS: cefOXitin 1 GM in Premix Bag 1 BAG IV SCH (01:08)
[2019-03-02] MEDS: oxyCODONE 5 MG Tab PO PRN ×3 (02:19→10:21)
[2019-03-02] MEDS: Acetaminophen 325 MG Tab PO SCH ×2 (05:10→10:19)
[2019-03-02] MEDS: Lactated Ringers 1,000 ML IV SCH (06:44)
--- NOTE | 2019-03-02 07:18 | PCM48HPAN ---
Post Anesthesia Note - EVALUATION WITHIN 48HRS OF ANESTHETIC Vital Signs in Normal Range: Yes Patient Participated in Evaluation: Yes Respiratory Function Stable: Yes Airway Patent: Yes Cardiovascular Function Stable: Yes Hydration Status Stable: Yes Pain Control Satisfactory: Yes Nausea and Vomiting Control Satisfactory: Yes Mental Status Recovered: Yes Vital Signs: Last Vital Signs Temp 37.5 C 03/02/19 04:15 Pulse 75 03/02/19 04:15 Resp 16 03/02/19 04:15 BP 113/62 03/02/19 04:15 Pulse Ox 93 L 03/02/19 04:15
--- NOTE | 2019-03-02 11:43 | PCM.SURGPN ---
- General Info Date of Service: 03/02/19 Date of Surgery/Procedure: 03/01/19 POD#: 1 Post-Op Diagnosis: Acute appendicitis Functional Status: Reports: Pain Controlled (Pain mostly to suprapubic incision and with activity), Tolerating Diet, Ambulating, Urinating, Other (Having bowel function) - Review of Systems General: Reports: No Symptoms HEENT: Reports: No Symptoms Pulmonary: Reports: No Symptoms Cardiovascular: Reports: No Symptoms Gastrointestinal: Reports: No Symptoms - Patient Data Vitals - Most Recent: Last Vital Signs Temp 98 F 03/02/19 07:45 Pulse 74 03/02/19 07:45 Resp 17 03/02/19 07:45 BP 147/69 H 03/02/19 07:45 Pulse Ox 96 03/02/19 07:45 Weight - Most Recent: 285 lb I&O - Last 24 Hours: Intake & Output 03/01/19 03/02/19 03/02/19 22:59 06:59 14:59 Intake Total 601 2361 Output Total 100 1500 Balance 501 861 Med Orders - Current: Current Medications Acetaminophen (Tylenol) 650 mg PO Q6H [facility] Last Admin: 03/02/19 10:19 Dose: 650 mg Hydromorphone HCl (Dilaudid) 0.5 mg IVPUSH Q1H PRN PRN Reason: Other Last Admin: 03/02/19 08:14 Dose: 0.5 mg Lactated Ringer's (Ringers, Lactated) 1,000 mls @ 125 mls/hr IV ASDIRECTED [facility] Last Admin: 03/02/19 06:44 Dose: 125 mls/hr Lactated Ringer's (Ringers, Lactated) 1,000 mls @ 125 mls[facility] Influenza Virus Vaccine (Fluzone Quad 0135-1039 Syringe) 60 mcg IM .ONCE ONE Stop: 03/03/19 10:31 Ondansetron HCl (Zofran) 4 mg IVPUSH Q6H PRN PRN Reason: Nausea/Vomiting Oxycodone HCl (Oxycodone) 5 mg PO Q4H PRN PRN Reason: Pain (moderate 4-6) Oxycodone HCl (Oxycodone) 10 mg PO Q4H PRN PRN Reason: Pain (severe 7-10) Last Admin: 03/02/19 10:21 Dose: 10 mg Senna/Docusate Sodium (Senna Plus) 1 tab PO BID PRN PRN Reason: Constipation Sodium Chloride (Saline Flush) 10 ml FLUSH ASDIRECTED PRN PRN Reason: Keep Vein Open Sodium Chloride (Saline Flush) 2.5 ml FLUSH ASDIRECTED PRN PRN Reason: Keep Vein Open Discontinued Medications Acetaminophen (Tylenol) 650 mg PO Q6H [facility] Last Admin: 03/01/19 17:23 Dose: Not Given Bupivacaine HCl (Marcaine 0.5%) Confirm Administered Dose 30 ml .ROUTE .STK-MED ONE Stop: 03/01/19 12:10 Cefazolin Sodium (Ancef) Confirm Administered Dose 1 gm .ROUTE .STK-MED ONE Stop: 03/01/19 12:11 Fentanyl (Sublimaze) Confirm Administered Dose 250 mcg .ROUTE .STK-MED ONE Stop: 03/01/19 12:03 Fentanyl (Sublimaze) Confirm Administered Dose 100 mcg .ROUTE .STK-MED ONE Stop: 03/01/19 13:47 Glycopyrrolate (Robinul) Confirm Administered Dose 0.8 mg .ROUTE .STK-MED ONE Stop: 03/01/19 12:05 Hydromorphone HCl (Dilaudid) 0.5 mg IVPUSH ONETIME ONE Stop: 03/01/19 07:56 Last Admin: 03/01/19 08:02 Dose: 0.5 mg Hydromorphone HCl (Dilaudid) 1 mg IVPUSH ONETIME ONE Stop: 03/01/19 10:34 Last Admin: 03/01/19 10:41 Dose: 1 mg Sodium Chloride (Normal Saline) 1,000 mls @ 999 mls/hr IV STAT ONE Stop: 03/01/19 07:20 Last Admin: 03/01/19 06:22 Dose: 999 mls/hr Sodium Chloride (Normal Saline) Confirm Administered Dose 20 mls @ as directed .ROUTE .STK-MED ONE Stop: 03/01/19 06:29 Last Admin: 03/01/19 06:39 Dose: 20 mls/hr Sodium Chloride (Normal Saline) 1,000 mls @ 999 mls/hr IV .Bolus ONE Stop: 03/01/19 08:02 Last Admin: 03/01/19 07:46 Dose: 999 mls/hr Piperacillin Sod/Tazobactam (Sod 3.375 gm/ Sodium Chloride) 50 mls @ 100 mls/ hr IV ONETIME ONE Stop: 03/01/19 09:09 Last Admin: 03/01/19 08:53 Dose: 100 mls/hr Cefoxitin Sodium 1 gm/ Premix 50 mls @ 100 mls/hr IV Q8H [facility] Stop: 03/01/19 22:29 Last Admin: 03/01/19 17:20 Dose: Not Given Cefoxitin Sodium 1 gm/ Premix 50 mls @ 100 mls/hr IV Q8H [facility] Stop: 03/02/19 01:14 Last Admin: 03/02/19 01:08 Dose: 100 mls/hr Influenza Virus Vaccine (Pharmacy To Dose - Influenza Vaccine) 1 each IM ONETIME ONE Stop: 03/01/19 10:10 Iopamidol (Isovue-370 (76%)) 90 ml IVPUSH ONETIME STA Stop: 03/01/19 07:21 Last Admin: 03/01/19 07:21 Dose: 90 ml Ketorolac Tromethamine (Toradol) Confirm Administered Dose 30 mg .ROUTE .STK- MED ONE Stop: 03/01/19 12:05 Lidocaine (Xylocaine-Mpf 2%) Confirm Administered Dose 5 ml .ROUTE .STK-MED ONE Stop: 03/01/19 12:05 Midazolam HCl (Versed 1 Mg/Ml) Confirm Administered Dose 2 mg .ROUTE .STK-MED ONE Stop: 03/01/19 12:03 Morphine Sulfate (Morphine) 4 mg IVPUSH ONETIME ONE Stop: 03/01/19 06:21 Last Admin: 03/01/19 06:40 Dose: 4 mg Morphine Sulfate (Morphine) 0 mg IVPUSH Q1H PRN PRN Reason: Pain (moderate 4-6) Last Admin: 03/01/19 12:39 Dose: 1 mg Neostigmine Methylsulfate (Neostigmine) Confirm Administered Dose 5 mg .ROUTE .STK-MED ONE Stop: 03/01/19 12:05 Ondansetron HCl (Zofran) 4 mg IVPUSH ONETIME ONE Stop: 03/01/19 06:21 Last Admin: 03/01/19 06:36 Dose: 4 mg Ondansetron HCl (Zofran) Confirm Administered Dose 4 mg .ROUTE .STK-MED ONE Stop: 03/01/19 12:05 Pantoprazole Sodium (Protonix Iv) 80 mg IVPUSH .BOLUS ONE Stop: 03/01/19 06:21 Last Admin: 03/01/19 06:44 Dose: 80 mg Phenylephrine HCl (Phenylephrine In Ns 100 Mcg/Ml) Confirm Administered Dose 1 mg .ROUTE .STK-MED ONE Stop: 03/01/19 13:42 Propofol (Diprivan 20 Ml) Confirm Administered Dose 200 mg .ROUTE .STK-MED ONE Stop: 03/01/19 12:03 Rocuronium Central (Zemuron) Confirm Administered Dose 100 mg .ROUTE .STK-MED ONE Stop: 03/01/19 12:05 Succinylcholine Chloride (Succinylcholine Chloride) Confirm Administered Dose 200 mg .ROUTE .STK-MED ONE Stop: 03/01/19 12:05 - Exam Wound/Incisions: Dressing Dry and Intact General: Alert, Oriented Lungs: Clear to Auscultation, Normal Respiratory Effort Cardiovascular: Regular Rate, Regular Rhythm GI/Abdominal Exam: Soft, Non-Tender, No Distention Extremities: No Pedal Edema Skin: Warm, Dry, Intact - Problem List & Annotations (1) Appendicitis SNOMED Code(s): 65968792 Code(s): K37 - UNSPECIFIED APPENDICITIS Status: Acute Priority: High Current Visit: Yes Qualifiers: Appendicitis type: acute appendicitis Acute appendicitis type: unspecified acute appendicitis type Qualified Code(s): K35.80 - Unspecified acute appendicitis - Problem List Review Problem List Initiated/Reviewed/Updated: Yes - My Orders Last 24 Hours: Active Orders 24 hr Category Date Time Status Patient Status [ADT] Routine ADT 03/01/19 13:59 Active Intake and Output [RC] QSHIFT Care 03/01/19 14:00 Active Oxygen Therapy [RC] PRN Care 03/01/19 13:59 Active Up ad Destiney [RC] ASDIRECTED Care 03/01/19 13:59 Active Vital Signs [RC] PER UNIT ROUTINE Care 03/01/19 13:59 Active Regular Diet [DIET] Diet 03/01/19 Dinner Active Acetaminophen [Tylenol] Med 03/01/19 16:45 Active 650 mg PO Q6H Docusate Sodium/Sennosides [Senna Plus] Med 03/01/19 13:59 Active 1 tab PO BID PRN FLU Vacc [id number](6MOS+)/PF [Fluzone Quad Med 03/03/19 10:30 Once Syringe] 60 mcg IM .ONCE ONE HYDROmorphone [Dilaudid] Med 03/01/19 13:59 Active 0.5 mg IVPUSH Q1H PRN Lactated Ringers [Ringers, Lactated] 1,000 ml Med 03/01/19 14:00 Active IV ASDIRECTED Ondansetron [Zofran] Med 03/01/19 13:59 Active 4 mg IVPUSH Q6H PRN oxyCODONE Med 03/01/19 14:11 Active 10 mg PO Q4H PRN oxyCODONE Med 03/01/19 14:10 Active 5 mg PO Q4H PRN Medication Orders Acetaminophen (Tylenol) 650 mg PO Q6H [facility] Last Admin: 03/02/19 10:19 Dose: 650 mg Admin: 03/02/19 05:10 Dose: 650 mg Admin: 03/01/19 23:00 Dose: 650 mg Admin: 03/01/19 16:53 Dose: 650 mg Hydromorphone HCl (Dilaudid) 0.5 mg IVPUSH Q1H PRN PRN Reason: Other Last Admin: 03/02/19 08:14 Dose: 0.5 mg Lactated Ringer's (Ringers, Lactated) 1,000 mls @ 125 mls/hr IV ASDIRECTED [facility] Last Admin: 03/02/19 06:44 Dose: 125 mls/hr Infusion: 03/02/19 05:14 Dose: 125 mls/hr Admin: 03/01/19 21:14 Dose: 125 mls/hr Infusion: 03/01/19 18:40 Dose: 125 mls/hr Admin: 03/01/19 10:40 Dose: 125 mls/hr Lactated Ringer's (Ringers, Lactated) 1,000 mls @ 125 mls/hr IV ASDIRECTED [facility] Influenza Virus Vaccine (Fluzone Quad Syringe) 60 mcg IM .ONCE ONE Stop: 03/03/19 10:31 Ondansetron HCl (Zofran) 4 mg IVPUSH Q6H PRN PRN Reason: Nausea/Vomiting Oxycodone HCl (Oxycodone) 5 mg PO Q4H PRN PRN Reason: Pain (moderate 4-6) Oxycodone HCl (Oxycodone) 10 mg PO Q4H PRN PRN Reason: Pain (severe 7-10) Last Admin: 03/02/19 10:21 Dose: 10 mg Admin: 03/02/19 06:43 Dose: 10 mg Admin: 03/02/19 02:19 Dose: 10 mg Admin: 03/01/19 21:17 Dose: 10 mg Admin: 03/01/19 16:55 Dose: 10 mg Senna/Docusate Sodium (Senna Plus) 1 tab PO BID PRN PRN Reason: Constipation Sodium Chloride (Saline Flush) 10 ml FLUSH ASDIRECTED PRN PRN Reason: Keep Vein Open Sodium Chloride (Saline Flush) 2.5 ml FLUSH ASDIRECTED PRN PRN Reason: Keep Vein Open - Assessment Assessment (Free Text/Narrative):: MR. Boogie is a 38 yr old male that is POD #1 s/p laparoscopic appendectomy for acute appendicitis. Doing well. Pain mostly with moving. Tolerating diet and having bowel function. - Plan Plan (Free Text/Narrative):: Discharge home today OK to shower tonight
[2019-03-02] MEDS ORDERED: FLU Vacc QS2019-20(6MOS+)/PF 60 MCG/0.5 ML SYRINGE IM ONE (13:50)
== END 2019-03-02 13:52 | disposition home or self-care (01) ==
LOC: MW.ED 06:05 → MW.SDS 08:52 → MW.MS 09:07 → MW.SDS 03-02 13:52
PROVIDERS: ATTEND Surgery
DX: K35.80 Unspecified acute appendicitis (principal); Z23 Encounter for immunization
CPT/HCPCS: 36415; 44970; 74177; 80053; 81003; 82150; 83605; 83690; 85025; 90686; 93005; 99284; A9270; C9113; J0330; J0694; J1170; J1885; J2001; J2250; J2270; J2370; J2405; J2543; J2704; J3010; J3490; J7040; J7050; J7120; Q9967; 88304; J0690